=== PATIENT | female | born 1940 | race Caucasian/White ===

== ENCOUNTER 2017-11-02 07:35 | Day surgery (SDC) | payer OTHER ==
[2017-11-01 11:05] VITALS: BMI 26.4
--- NOTE | 2017-11-01 12:06 | HP ---
- Patient Scheduled date of Surgery: 11/02/17 Scheduled Surgical Procedure: Phacoemulsification and cataract extraction with PCIOL Affected Eye: Right Chief Complaint (Indication for surgery): Decreased vision affecting ADLs - Ocular History Other Eye History: Other (larisa) Eye Medications: vigamox Previous Eye Surgery: none - Medical History Illnesses: Hypertension, Hypercholesterolemia, Other (CVA with aphasia, assisted patient , wheelchair bound) Current Medications: Ambulatory Orders Amlodipine Besylate 5 mg PO DAILY 11/01/17 Aspirin [ASA -] 325 mg PO DAILY 11/01/17 Baclofen 10 mg PO BID 11/01/17 Citalopram Hydrobromide [Celexa -] 20 mg PO DAILY 11/01/17 Multivit with Iron,Minerals [Compete] 1 each PO DAILY 11/01/17 Nasonex 1 spray IN DAILY 11/01/17 Omeprazole 20 mg PO BID 11/01/17 Sennosides [Senna] 1 tab PO HS 11/01/17 Solifenacin Succinate [Vesicare -] 5 mg PO DAILY 11/01/17 Allergies/Adverse Reactions: Allergies Allergy/AdvReac Type Severity Reaction Status Date / Time No Known Drug Allergies Allergy Verified 11/01/17 11:05 peanuts Allergy Uncoded 11/01/17 11:05 Ocular Examination - Best Corrected Visual Acuity Distance: Right eye: 20/40 Distance: Left eye: 20/60 - External/Slit Lamp Examination Abnormalities: decreased tbut, arcus - Intraocular Pressure Intraocular Pressure - Right eye: 8 Intraocular Pressure-Left eye: 8 - Lens Lens: 2+ NS 2+ cortical 2+ psc - Vitreous/Retina Vitreous/Retina: C:D 0.15 m/v/p wnl - Special Examination M - Right eye: +4.75-0.50 x 090 M - Left eye: +4.50 K - Right eye: 41/41.50 x 180 K - Left eye: 41/41.50 x 180 AL - Right eye: 23.37 AL - Left eye: 23.32 IOL bag: +23.5 d hoya 251 IOL sulcus: +23.0 d hoya 231 IOL AC: +20.0 d MTA 4uo - Impression Impression: Cataract Right Eye (PSC) - Plan Plan: Phacoemulsification and cataract extraction - IOL Right eye Post-hospital care will be provided in office on: 11/03/17
--- NOTE | 2017-11-02 07:21 | HP ---
History & Physical Update - History History: No Change - Physical Physical: No Change - Assessment Assessment: No Change (dr. Raman h & p reviewed from 10/25/17 , no changes) - Plan Plan: No Change
[~2017-11-02 07:35] MED LIST: CIPROFLOXACIN HCL 0.3% OPHTH 2.5ML BOTTLE OP SCH; DICLOFENAC SODIUM 0.1% OPHTHALMIC 2.5ML BOTTLE OP SCH; PHENYLEPHRINE 2.5% OPHTH SOLN 15 ML BOTTLE OP SCH; TOBRAMYCIN/DEXAMETHASONE OPHTH. OINTMENT 1 TUBE TP ONE; TROPICAMIDE 1% OPHTH SOLN 15 ML BOTTLE OP SCH
[2017-11-02] MEDS ORDERED: CIPROFLOXACIN 0.3% EYE DROPS 5 ML BOTTLE ONE (07:49)
[2017-11-02] MEDS ORDERED: FLURBIPROFEN 0.03% OPHTH SOLN 2.5 ML BOTTLE ONE (07:50)
[2017-11-02] MEDS ORDERED: TROPICAMIDE 0.5% OPHTHALMIC SOLN 15 ML BOTTLE ONE (07:50)
[2017-11-02 07:55] VITALS: TEMP 98.6
[2017-11-02] MEDS ORDERED: ACETAMINOPHEN 325 MG TABLET (FP) PO PRN (08:00)
[2017-11-02] MEDS ORDERED: CHONDROITIN SU A/HYALUR SOD 1 KIT IO ONE (08:05)
[2017-11-02] MEDS ORDERED: LIDOCAINE HCL 2% JELLY (5 ML/TUBE) TP ONE (08:50)
[2017-11-02] MEDS ORDERED: MIDAZOLAM HCL 2 MG/2 ML SINGLE DOSE VIAL ONE (08:58)
[2017-11-02] MEDS ORDERED: LIDOCAINE HCL 1% PRESERVATIVE FREE - 30ML VIAL IO ONE (09:04)
[2017-11-02] MEDS ORDERED: TOBRAMYCIN/DEXAMETHASONE OPHTH. OINTMENT 1 TUBE TP ONE (09:23)
--- NOTE | 2017-11-02 09:35 | OP ---
Ophthalmology Operative Note Pre-Operative Diagnosis: Cataract (PSC) Affected Eye: Right Operation: Phacoemulsification and cataract extraction with PCIOL Findings: cataract right eye Post-Operative Diagnosis: Same as Pre-op Plant Ecologist: None Anesthesiologist: Diana Caceres MD Anesthesia: Topical Specimens Removed: none Estimated blood loss: none Drains & Tubes with Location: none Operative Report Dictated: Yes
--- NOTE | 2017-11-02 10:10 | OP ---
DATE OF OPERATION: 11/02/2017 PREOPERATIVE DIAGNOSIS: Posterior capsular cataract, right eye. POSTOPERATIVE DIAGNOSIS: Posterior capsular cataract, right eye. PROCEDURE: Phacoemulsification and cataract extraction with insertion of posterior chamber intraocular lens, right eye. SURGEON: Reina Villaseñor MD SURGICAL TECHNICIAN: None. ANESTHESIA: Topical. ANESTHESIOLOGIST: Diana Caceres MD OPERATIVE PROCEDURE: The patient received viscous lidocaine gel 2% to the right eye and then was gently sedated and prepped and draped in the usual sterile fashion so as to expose only the right eye. Ophthalmic Betadine was instilled into the inferior fornix, and the lashes were taped out of the surgical field. An eyelid speculum was placed into the right eye. A paracentesis was made in superior clear cornea at the limbus. Next, 0.5 mL of nonpreserved lidocaine 1% was injected into the anterior chamber. Viscoelastic material was instilled into the anterior chamber via the paracentesis. A 2.4-mm keratome was then used to create the main incision in temporal clear cornea at the limbus. A continuous curvilinear capsulorrhexis was performed using a cystotome and Utrata forceps. Hydrodissection of the lens cortex was performed using BSS on a cannula until the nucleus was noted to be freely rotating. The phacoemulsification tip was inserted via the main wound and used to sculpt 2 perpendicular grooves into the lens nucleus. The lens nucleus was cracked into 4 quadrants. Each quadrant was lifted out of the capsule into the iris plane and individually phacoemulsified. The remaining cortical material was then aspirated using the irrigation and aspiration port. The capsular bag was inflated using Provisc, and a preloaded Hoya lens model 251, power +22.5 diopters was injected into the capsular bag. It was centered using a Sinskey hook. The residual viscoelastic material was removed from the anterior chamber using irrigation and aspiration. The wound edges were hydrated using BSS. The wound was tested for leakage. It was found to be watertight. Therefore, TobraDex ointment was placed in the eye and the speculum was removed from the eye and the eyelid was closed. A sterile dressing and shield were placed over the eye, and the patient was transferred to the recovery room in stable condition and told to follow up in 1 day. REINA VILLASEÑOR M.D. [id number]
[2017-11-02 12:31] VITALS: BP 127/66; PULSE 59
== END 2017-11-02 10:40 ==
LOC: JASU-SURG 07:35
PROVIDERS: ATTEND Ophthalmology
PROC: 08RJ3JZ Replacement of Right Lens with Synthetic Substitute, Percutaneous Approach (ICD-10-PCS; principal; 2017-11-02 08:30)
DX: H26.9 Unspecified cataract (principal)

== ENCOUNTER 2017-11-16 06:52 | Day surgery (SDC) | payer OTHER ==
[2017-11-14 17:31] VITALS: BMI 26.3
--- NOTE | 2017-11-15 18:55 | HP ---
- Patient Scheduled date of Surgery: 11/16/17 Scheduled Surgical Procedure: Phacoemulsification and cataract extraction with PCIOL Affected Eye: Left Chief Complaint (Indication for surgery): Decreased vision affecting ADLs - Ocular History Other Eye History: Other (larisa) Eye Medications: vigamox tid OS, AT Previous Eye Surgery: s/p ce/pciol Od - Medical History Illnesses: Hypertension, Other Current Medications: Ambulatory Orders Amlodipine Besylate 5 mg PO DAILY 11/01/17 Aspirin [ASA -] 325 mg PO DAILY 11/01/17 Baclofen 10 mg PO BID 11/01/17 Citalopram Hydrobromide [Celexa -] 20 mg PO DAILY 11/01/17 Multivit with Iron,Minerals [Compete] 1 each PO DAILY 11/01/17 Nasonex 1 spray IN DAILY 11/01/17 Omeprazole 20 mg PO BID 11/01/17 Sennosides [Senna] 1 tab PO HS 11/01/17 Solifenacin Succinate [Vesicare -] 5 mg PO DAILY 11/01/17 Allergies/Adverse Reactions: Allergies Allergy/AdvReac Type Severity Reaction Status Date / Time No Known Drug Allergies Allergy Verified 11/14/17 17:24 peanuts Allergy Uncoded 11/14/17 17:24 Ocular Examination - Best Corrected Visual Acuity Distance: Right eye: 20/60 Distance: Left eye: 20/400 - External/Slit Lamp Examination Abnormalities: decreased TBUT, arcus ou - Intraocular Pressure Intraocular Pressure - Right eye: 11 Intraocular Pressure-Left eye: 8 - Lens Lens: 2+ NS 2+ cortical 2+ psc - Vitreous/Retina Vitreous/Retina: C:d 0.15 m/v/p wnl - Special Examination M - Right eye: +1.00-2.00 x 102 M - Left eye: +4.50 K - Right eye: 40.5/41.5 x 012 K - Left eye: 41/41.25 x 180 AL - Left eye: 23.32 IOL bag: +24 [id number] IOL sulcus: +23.5 [id number] IOL AC: +20.0 Mta 4uo - Impression Impression: Cataract Left Eye (psc) - Plan Plan: Phacoemulsification and cataract extraction - IOL Left eye Post-hospital care will be provided in office on: 11/17/17
[~2017-11-16 06:52] MED LIST changes: +CHONDROITIN SU A/HYALUR SOD 1 KIT IO ONE; -CIPROFLOXACIN HCL 0.3% OPHTH 2.5ML BOTTLE OP SCH; -DICLOFENAC SODIUM 0.1% OPHTHALMIC 2.5ML BOTTLE OP SCH; +LIDOCAINE HCL 1% PRESERVATIVE FREE - 30ML VIAL IO ONE; +LIDOCAINE HCL 2% JELLY (5 ML/TUBE) TP ONE; -PHENYLEPHRINE 2.5% OPHTH SOLN 15 ML BOTTLE OP SCH; -TROPICAMIDE 1% OPHTH SOLN 15 ML BOTTLE OP SCH
[2017-11-16] MEDS ORDERED: TROPICAMIDE 0.5% OPHTHALMIC SOLN 15 ML BOTTLE ONE (07:15)
[2017-11-16] MEDS ORDERED: CIPROFLOXACIN 0.3% EYE DROPS 5 ML BOTTLE ONE (07:15)
[2017-11-16] MEDS ORDERED: FLURBIPROFEN 0.03% OPHTH SOLN 2.5 ML BOTTLE ONE (07:15)
[2017-11-16] MEDS ORDERED: PHENYLEPHRINE 2.5% OPHTH SOLN 15 ML BOTTLE ONE (07:16)
[2017-11-16] MEDS ORDERED: FLURBIPROFEN 0.03% OPHTH SOLN 2.5 ML BOTTLE OS ONE ×3 (07:20→07:30)
[2017-11-16] MEDS ORDERED: TROPICAMIDE 0.5% OPHTHALMIC SOLN 15 ML BOTTLE OS ONE ×3 (07:20→07:30)
[2017-11-16] MEDS ORDERED: CIPROFLOXACIN HCL 0.3% OPHTH 2.5ML BOTTLE OS ONE ×3 (07:20→07:30)
[2017-11-16] MEDS ORDERED: PHENYLEPHRINE 2.5% OPHTH SOLN 15 ML BOTTLE OS ONE ×3 (07:20→07:30)
[2017-11-16] MEDS ORDERED: EPINEPHrine/PF 1 MG/1 ML (1:1,000) AMPULE ONE (07:23)
[2017-11-16] MEDS ORDERED: TOBRAMYCIN/DEXAMETHASONE OPHTH. OINTMENT 1 TUBE ONE (07:23)
[2017-11-16] MEDS ORDERED: LIDOCAINE HCL/PF 1% SDV 5ML VIAL ONE (07:24)
[2017-11-16] MEDS ORDERED: LIDOCAINE HCL 2% JELLY (5 ML/TUBE) ONE (07:24)
[2017-11-16] MEDS ORDERED: POVIDONE-IODINE 5% OPHTHALMIC PREP 30 ML SOLUTION ONE (07:24)
[2017-11-16] MEDS ORDERED: ACETAMINOPHEN 325 MG TABLET (FP) PO PRN (07:27)
--- NOTE | 2017-11-16 07:34 | HP ---
History & Physical Update - Physical Physical: No Change - Assessment Assessment: No Change - Plan Plan: No Change (reviewed h and p by Dr. Goldberg from 10/25/17 no changes)
[2017-11-16] MEDS ORDERED: LIDOCAINE HCL 2% JELLY (5 ML/TUBE) TP ONE (08:05)
[2017-11-16] MEDS ORDERED: MIDAZOLAM HCL 2 MG/2 ML SINGLE DOSE VIAL ONE (08:07)
[2017-11-16] MEDS ORDERED: CHONDROITIN SU A/HYALUR SOD 1 KIT IO ONE (08:16)
[2017-11-16] MEDS ORDERED: LIDOCAINE HCL 1% PRESERVATIVE FREE - 30ML VIAL IO ONE (08:16)
[2017-11-16] MEDS ORDERED: TOBRAMYCIN/DEXAMETHASONE OPHTH. OINTMENT 1 TUBE TP ONE (08:40)
--- NOTE | 2017-11-16 08:48 | OP ---
Ophthalmology Operative Note Pre-Operative Diagnosis: Cataract Affected Eye: Left Operation: Phacoemulsification and cataract extraction with PCIOL Findings: ns catraract Post-Operative Diagnosis: Same as Pre-op Drug And Alcohol Counselor: Keyur Anesthesiologist: Christine Nevarez Anesthesia: Topical Specimens Removed: none Estimated blood loss: none Drains & Tubes with Location: none Operative Report Dictated: Yes
--- NOTE | 2017-11-16 09:12 | OP ---
DATE OF OPERATION: 11/16/2017 PREOPERATIVE DIAGNOSIS: Posterior subcapsular cataract, left eye. POSTOPERATIVE DIAGNOSIS: Nuclear cataract and posterior subcapsular cataract, left eye. PROCEDURE: Phacoemulsification and cataract extraction with insertion of posterior chamber intraocular lens, left eye. SURGEON: Reina Villaseñor MD ANODE MACHINE OPERATOR: None. ANESTHESIA: Topical. ANESTHESIOLOGIST: Christine Nevarez MD OPERATIVE PROCEDURE: The patient received viscous lidocaine 2% gel and then was given light sedation. The patient was then prepped and draped in the usual sterile fashion so as to expose only the left eye. Ophthalmic Betadine was placed into the inferior fornix, and the lashes were taped out of the surgical field. An eyelid speculum was placed into the left eye. A paracentesis was made in inferior clear cornea at the limbus. Then, 0.5 mL of nonpreserved lidocaine 1% was injected into the anterior chamber. Viscoelastic material was instilled into the anterior chamber via the paracentesis. A 2.4-mm keratome was then used to create the main incision in temporal clear cornea at the limbus. A continuous curvilinear capsulorrhexis was performed using a cystotome and Utrata forceps. Hydrodissection of the lens cortex was performed using BSS on a cannula until the nucleus was noted to be freely rotating. The phacoemulsification tip was inserted via the main wound and used to sculpt two perpendicular grooves into the lens nucleus. The nucleus was cracked into four quadrants. Each quadrant was lifted out of the capsule into the iris plane and individually phacoemulcified. The remaining cortical material was then aspirated using the irrigation and aspiration port. The capsular bag was inflated using Provisc and a preloaded Lucian lens, model [id number], power +24.0 diopters, was injected into the capsular bag and centered using a Sinskey hook. The residual viscoelastic material was removed from the anterior chamber using irrigation and aspiration. The wound edges were hydrated using BSS. The wound was tested for leakage and found to be watertight. Therefore, TobraDex ointment was placed in the eye, and the speculum was removed from the eye, and the eyelid was closed. A sterile dressing and shield were placed over the eye, and the patient was transferred to the recovery room in stable condition, told to follow up in one day. REINA VILLASEÑOR M.D. [id number]
[2017-11-16 09:13] VITALS: TEMP 97.8
[2017-11-16] MEDS: CIPROFLOXACIN HCL 0.3% OPHTH 2.5ML BOTTLE OP SCH ×2 (12:45→12:46)
[2017-11-16] MEDS: TROPICAMIDE 1% OPHTH SOLN 15 ML BOTTLE OP SCH (12:46)
[2017-11-16] MEDS: PHENYLEPHRINE 2.5% OPHTH SOLN 15 ML BOTTLE OP SCH (12:47)
[2017-11-16] MEDS: FLURBIPROFEN 0.03% OPHTH SOLN 2.5 ML BOTTLE OP SCH (12:47)
[2017-11-16] MEDS: DICLOFENAC SODIUM 0.1% OPHTHALMIC 2.5ML BOTTLE OP SCH (12:48)
[2017-11-16 15:38] VITALS: BP 112/59; PULSE 61
== END 2017-11-16 12:45 ==
LOC: JASU-SURG 06:52
PROVIDERS: ATTEND Ophthalmology
PROC: 08RK3JZ Replacement of Left Lens with Synthetic Substitute, Percutaneous Approach (ICD-10-PCS; principal; 2017-11-16 08:00)
DX: H25.12 Age-related nuclear cataract, left eye (principal)